=== PATIENT | female | born 1985 | race Caucasian/White ===

== ENCOUNTER 2022-11-10 13:20 | Outpatient (CLI) | payer BC, SELFPAY ==
[2022-11-10 21:45] LABS: Strep Group A RT-PCR NOT DETECTED (Negative)
[2022-11-10 21:50] LABS: SARS-CoV-2 RNA PCR Negative
== END 2022-11-10 13:21 | disposition home or self-care (01) ==
LOC: ANHGOSHLAB 13:22
PROVIDERS: PCP Physician Assistant; Visit Provider Physician Assistant
DX: R05.9 Cough, unspecified (principal); Z20.818 Contact with and (suspected) exposure to other bacterial communicable diseases; Z20.822 Contact with and (suspected) exposure to COVID-19
CPT/HCPCS: 87651; U0003; U0005

== ENCOUNTER 2023-04-14 15:08 | Outpatient (CLI) | payer BC, SELFPAY ==
--- NOTE | ~2023-04-14 | CT_ITS ---
EXAMINATION: CT brain wo con DATE: 04/14/2023 15:24 INDICATION: Headache. Intermittent left retro-orbital headache for several months. TECHNIQUE: Computed tomography (CT) of the head was performed without intravenous contrast. The mA wa s adjusted according to patient size. Iterative reconstruction technique was employed. Exam dose: 60 5.33 mGy-cm total exam DLP. COMPARISON: None FINDINGS: No intracranial mass lesion or hemorrhage was cerebrovascular accident. No midline shift or mass effect. No subdural or epidural hematoma. There is limited focal posterior right ethmoid air cell opacification. The included paranasal sinuses and the mastoid air cells are otherwise normally developed and aerated. No fracture or bone destruction of the cranial vault. IMPRESSION: No significant intracranial abnormality Limited focal posterior right ethmoid air cell opacification Reviewed, dictated and finalized at [facility]. Reviewed, dictated and finalized at [facility].
== END 2023-04-14 15:09 | disposition home or self-care (01) ==
LOC: ANHIMG 15:13
PROVIDERS: PCP Physician Assistant; Visit Provider Physician Assistant
DX: R51.9 Headache, unspecified (principal); G89.29 Other chronic pain; J32.2 Chronic ethmoidal sinusitis
CPT/HCPCS: 70450